=== PATIENT | female | born 2000 | race Caucasian/White ===

== ENCOUNTER 2018-11-13 02:33 | Emergency (ER) | payer BC ==
[2018-11-13] MEDS ORDERED: Sodium Chloride 0.9% 1,000 ML IV ONE (03:33)
[2018-11-13] MEDS ORDERED: Sodium Chloride 0.9% 10 ML Syringe FLUSH PRN (03:43)
--- NOTE | 2018-11-13 04:41 | EDM.PDOC ---
ED HPI GENERAL MEDICAL PROBLEM - General Chief Complaint: General Stated Complaint: leg weakness Time Seen by Provider: 11/13/18 02:45 Source of Information: Reports: Patient History Limitations: Reports: No Limitations - History of Present Illness INITIAL COMMENTS - FREE TEXT/NARRATIVE: patient is a previously healthy 18yo female who presents with inability to walk at home, feeling weak all over. earlier this afternoon she drove from [place] where she lives and works and states that while she was driving she started to feel weird, like her legs were kind of locked up and she notes that she didn't have cruise control in her car and felt like her foot was kind of stuck and she was unable to press down on the accelerator. She met up with her boyfriend about 11:50 PM them and they drove to his sister's house. As she got out of the car at his sister's house she tried walking to her own truck and just was not able to get there because her legs felt weak all over. She also noted that she was a little bit sweaty while sitting outside waiting for him to come help h but denies any other symptoms. She was unable to get up any stairs going into the house and her boyfriend had to help her significantly to come inside. He decided to call EMS as they were not sure what was wrong. She has never had anything like this happen before She notes a very slight amount of chest pain as she got on the ambulance, but says it felt more like anxiety at that point. She denies chest pain at any other time. She denies any nausea or vomiting, urinary tract symptoms such as dysuria, increased frequency or burning when she urinates. She denies any abnormal vaginal discharge, fevers, chills or sweats, palpitations, syncopal or dizziness. She states that her legs feel little bit tingly and weird all over but denies any other numbness. she has no other symptoms or medical problems aside from 2 surgeries on her right knee, the second one for patellar displacement. Right knee Pain Score (Numeric/FACES): 5 - Related Data Allergies Allergy/AdvReac Type Severity Reaction Status Date / Time No Known Allergies Allergy Verified 11/13/18 02:39 Home Meds: Home Meds Benzoyl Peroxide [Bpo] 1 each TP BID PRN 09/20/14 [History] Fluticasone Propionate [Flonase] 2 spray NS DAILY PRN 09/20/14 [History] Albuterol [Proventil] 1 - 2 puff PO ASDIRECTED PRN 05/28/16 [History] Citalopram [Citalopram HBr] 40 mg PO DAILY 11/13/18 [History] hydrOXYzine pamoate [Hydroxyzine Pamoate] 25 mg PO BEDTIME 11/13/18 [History] hydrOXYzine pamoate [Hydroxyzine Pamoate] 25 mg PO Q4H PRN 11/13/18 [History] Past Medical History Other HEENT History: ACNE Respiratory History: Reports: Asthma Other Respiratory History: SINUSITIS Musculoskeletal History: Reports: Fracture Other Musculoskeletal History: RIGHT WRIST 4 YEARS AGO Neurological History: Reports: Migraines Psychiatric History: Reports: Anxiety, Depression Endocrine/Metabolic History: Reports: Obesity/BMI 30+ Dermatologic History: Reports: Other (See Below) Other Dermatologic History: ACNE - Infectious Disease History Infectious Disease History: Reports: Chicken Pox - Past Surgical History Other HEENT Surgeries/Procedures: WISDOM TOOTH REMOVED Musculoskeletal Surgical History: Reports: Other (See Below) Other Musculoskeletal Surgeries/Procedures:: Scar tissue removal right knee. Social & Family History - Family History Cardiac: Reports: CAD, [place] (father at age 51 of massive [place]) Other Family History: no family history of sudden unexplained under the age of 50 that she is aware of. - Tobacco Use Smoking Status *Q: Current Every Day Smoker Years of Tobacco use: 2 Packs/Tins Daily: 0.5 - Caffeine Use Caffeine Use: Reports: Soda - Alcohol Use Alcohol Use Comment: denies any alcohol use - Recreational Drug Use Other Recreational Drug Route: denies any recreational drug use - Living Situation & Occupation Occupation: Employed Social History Comment: from [facility], living in [place] with her boyfriend. Father of massive [place] when she was [age] year of age, her mother was 21 at the time. she is estranged from her mother although does have some relationship with her maternal grandmother. she has siblings who are quite spaced from her and age, 3 older and 2 younger ED ROS GENERAL - Review of Systems Review Of Systems: ROS reveals no pertinent complaints other than HPI. ED EXAM, GENERAL - Physical Exam Exam: See Below Free Text/Narrative:: Gen.: Alert, pleasant in no acute distress. Tympanic membranes are clear bilaterally with normal light reflex and throat is without erythema, mucous members are moist and there is no tonsillar enlargement, uvula is midline. No cervical lymphadenopathy in her neck is supple and she is moving it freely. Lungs are clear throughout with no wheezes or crackles and good air movement in all kaur and heart is regular rate and rhythm. Abdomen positive bowel sounds, soft nondistended nontender with no rebound or guarding. peripheral pulses are + 2 bilaterally in both the upper and lower extremities and equal. She has no lower extremity edema. Neurologic exam: Patient is alert and oriented 3, cranial nerves II through XII are intact without deficit. Muscular strength is +5 out of 5 in the upper extremities. Lower extremity seems also to be +5 out of 5 with some break away weakness, but full strength issues suddenly resisted. Reflexes are 2+ in both the upper and lower extremities bilaterally and the Babinski sign is negative. Sensation is grossly intact and not officially tested. [id number] is intact , [id number] is also intact. Gait is observed to be normal after some normal saline when she is walking to the bathroom. Psych: smiling and glancing over at boyfriend as she answers questions. Good eye contact, speech normal rate and volume, thoughts logical and goal directed, no evident paranoia, hallucinations, or psychosis. Insight and judgment - unable to tell. No suicidal ideation and denies feeling in any danger. Course - Vital Signs Text/Narrative:: initial evaluation - normal neuro exam, patient with adequate strength when resisted with distraction. On control pills but discussed with her privately ruling out . Also will give liter normal saline as she hasn' t had much fluid intake today. Does not sound cardiac in nature, suspect primarily psychogenic. Last Recorded V/S: Last Vital Signs Temp 36.6 C 11/13/18 02:43 Pulse 90 11/13/18 02:43 Resp 20 11/13/18 02:43 BP 125/55 L 11/13/18 02:43 Pulse Ox 98 11/13/18 02:43 - Orders/Labs/Meds Orders: Active Orders 24 hr Category Date Time Status Sodium Chloride 0.9% [Saline Flush] Med 11/13/18 03:43 Active 10 ml FLUSH ASDIRECTED PRN Medication Orders Sodium Chloride (Saline Flush) 10 ml FLUSH ASDIRECTED PRN PRN Reason: IV Use Last Admin: 11/13/18 03:43 Dose: 10 ml Labs: Laboratory Tests 11/13/18 Range/Units 04:35 Urine HCG, Qual Negative (NEGATIVE) Meds: Medications Generic Name Dose Route Start Last Admin Trade Name Danilo PRN Reason Stop Dose Admin Sodium Chloride 10 ml 11/13/18 03:43 11/13/18 03:43 Saline Flush FLUSH 10 ml ASDIRECTED PRN Administration IV Use Discontinued Medications Generic Name Dose Route Start Last Admin Trade Name Freq PRN Reason Stop Dose Admin Sodium Chloride 1,000 mls @ 999 mls/hr 11/13/18 03:33 11/13/18 03:46 Normal Saline IV 11/13/18 04:33 999 mls/hr .BOLUS ONE Administration - Re-Assessments/Exams Free Text/Narrative Re-Assessment/Exam: 11/13/18 04:49 patient observed to be able to walk to bathroom without assistance. Free Text/Narrative Re-Assessment/Exam: 11/13/18 04:58 discussed with patient possibility of legs having some circulatory cutoff from sitting in car too long, wes while driving. She feels well enough now to go home. Encouraged fluids today, f/u with PCP if symptoms worsening. All questions answered and she is agreement with this plan. Departure - Departure Time of Disposition: 04:59 Disposition: Home, Self-Care 01 Condition: Good Clinical Impression: Weakness generalized - Discharge Information *PRESCRIPTION DRUG MONITORING PROGRAM REVIEWED*: Not Applicable *COPY OF PRESCRIPTION DRUG MONITORING REPORT IN PATIENT KING: Not Applicable Referrals: PCP,None [Primary Care Provider] - Forms: ED Department Discharge Additional Instructions: I suspect your symptoms are a combination of sitting in one position too long and slight dehydration. Sometimes stress can also be a contributing factor though we didn't really discuss that tonight. Recommendation: rest for the remainder of night suspect you will feel much better after some sleep abstain from alcohol/drugs as you are doing if achiness, be sure to drink lots of water, and can take ibuprofen or tylenol if needed when on longer car rides or driving, be sure to stop frequently to make sure legs have good circulation. It can also be helpful to adjust your seat slightly from time to time. Wes given your knee problems, this will be important to make sure you do not develop any swelling which can lead to clots. if symptoms persist, may want to see PCP for physical therapy referral. If worsening symptoms, re-evaluate early next week with PCP if concern for life-threat or after hours, may return to ER test negative - My Orders Last 24 Hours: My Active Orders 11/13/18 03:43 Sodium Chloride 0.9% [Saline Flush] 10 ml FLUSH ASDIRECTED PRN - Assessment/Plan Last 24 Hours: My Active Orders 11/13/18 03:43 Sodium Chloride 0.9% [Saline Flush] 10 ml FLUSH ASDIRECTED PRN
[2018-11-13 05:20] VITALS: BP 112/61; PULSE 76
== END 2018-11-13 05:15 | disposition home or self-care (01) ==
LOC: FB.ED 02:33
DX: R53.1 Weakness (principal); F41.9 Anxiety disorder, unspecified; F32.9 Major depressive disorder, single episode, unspecified; E66.9 Obesity, unspecified; F17.210 Nicotine dependence, cigarettes, uncomplicated; Z79.899 Other long term (current) drug therapy
CPT/HCPCS: 81025; 93005; 96360; 99284; J7030

== ENCOUNTER 2020-04-04 15:54 | Emergency (ER) | payer BC ==
[2020-04-04] MEDS ORDERED: Sodium Chloride 0.9% 10 ML Syringe FLUSH PRN (16:21)
[2020-04-04] MEDS ORDERED: Ketorolac 30 MG/ML SDV IVPUSH ONE (16:23)
[2020-04-04] MEDS ORDERED: Morphine 2 MG/ML SYRINGE IVPUSH ONE (16:24)
[2020-04-04] MEDS ORDERED: Sodium Chloride 0.9% 1,000 ML IV SCH (16:30)
[2020-04-04] MEDS ORDERED: Iopamidol 755 Mg/ML 100 ML Bottle IV ONE (16:57)
--- NOTE | 2020-04-04 18:31 | EDM.PDOC ---
ED HPI GENERAL MEDICAL PROBLEM - General Chief Complaint: Abdominal Pain Stated Complaint: RT ABD PAIN Time Seen by Provider: 04/04/20 16:00 Source of Information: Reports: Patient History Limitations: Reports: No Limitations - History of Present Illness INITIAL COMMENTS - FREE TEXT/NARRATIVE: Patient presented to the ED because of RUQ for the past 5 days. The pain is sharp,10/10, with associated nausea but no vomiting. There is no fever,chills, cough and cold. R upper abdomen Pain Score (Numeric/FACES): 9 - Related Data Allergies Allergy/AdvReac Type Severity Reaction Status Date / Time No Known Allergies Allergy Verified 04/04/20 16:03 Home Meds: Home Meds Albuterol [Proventil] 1 - 2 puff PO ASDIRECTED PRN 05/28/16 [History] Citalopram [Citalopram HBr] 40 mg PO DAILY 11/13/18 [History] hydrOXYzine pamoate [Hydroxyzine Pamoate] 25 mg PO BEDTIME 11/13/18 [History] hydrOXYzine pamoate [Hydroxyzine Pamoate] 25 mg PO Q4H PRN 11/13/18 [History] Ciprofloxacin HCl [Cipro] 500 mg PO BID 04/04/20 [History] Propranolol [Inderal] 80 mg PO BID 04/04/20 [History] SUMAtriptan succinate [Imitrex] 100 mg PO ASDIRECTED PRN 04/04/20 [History] Sulfamethoxazole/Trimethoprim [Bactrim Ds Tablet] 1 tab ASDIRECTED 04/04/20 [History] Past Medical History Other HEENT History: ACNE Respiratory History: Reports: Asthma Other Respiratory History: SINUSITIS Genitourinary History: Reports: Pyelonephritis Musculoskeletal History: Reports: Fracture Other Musculoskeletal History: RIGHT WRIST 4 YEARS AGO, R elbow, R ankle Neurological History: Reports: Migraines Psychiatric History: Reports: Anxiety, Depression Endocrine/Metabolic History: Reports: Obesity/BMI 30+ Dermatologic History: Reports: Other (See Below) Other Dermatologic History: ACNE - Infectious Disease History Infectious Disease History: Reports: Chicken Pox, MRSA - Past Surgical History HEENT Surgical History: Reports: Oral Surgery Other HEENT Surgeries/Procedures: WISDOM TOOTH REMOVED Musculoskeletal Surgical History: Reports: Arthroscopic Knee, Other (See Below) Other Musculoskeletal Surgeries/Procedures:: Scar tissue removal right knee x 2 Social & Family History - Family History Family Medical History: No Pertinent Family History Cardiac: Reports: CAD, [place] - Tobacco Use Tobacco Use Status *Q: Current Every Day Tobacco User Years of Tobacco use: 3 Packs/Tins Daily: 0.4 - Caffeine Use Caffeine Use: Reports: None - Alcohol Use Days Per Week of Alcohol Use: 1 Number of Drinks Per Day: 4 Total Drinks Per Week: 4 - Recreational Drug Use Recreational Drug Use: No - Living Situation & Occupation Occupation: Employed ED ROS GENERAL - Review of Systems Review Of Systems: See Below Constitutional: Reports: No Symptoms HEENT: Reports: No Symptoms Respiratory: Reports: No Symptoms Cardiovascular: Reports: No Symptoms Endocrine: Reports: No Symptoms GI/Abdominal: Reports: Abdominal Pain : Reports: No Symptoms Musculoskeletal: Reports: No Symptoms Skin: Reports: No Symptoms Neurological: Reports: No Symptoms Psychiatric: Reports: No Symptoms ED EXAM, GI/ABD - Physical Exam Exam: See Below Exam Limited By: No Limitations General Appearance: Alert, No Apparent Distress Ears: Normal External Exam Nose: Normal Inspection, Normal Mucosa Throat/Mouth: Normal Inspection, Normal Lips Head: Atraumatic, Normocephalic Respiratory/Chest: No Respiratory Distress Cardiovascular: Normal Peripheral Pulses GI/Abdominal Exam: Normal Bowel Sounds, Soft, No Organomegaly, Other (tenderness over the RUQ) Back Exam: Normal Inspection, Full Range of Motion Extremities: Normal Inspection, Normal Capillary Refill Course - Vital Signs Text/Narrative:: Labs/CT abd-pelvis was discussed with patient NS 1 L b bolus Zofran 4mg IV Toradol 30 mg IV x1 Morpgine 2 mg IV x1 Last Recorded V/S: Last Vital Signs Temp 36.7 C 04/04/20 15:58 Pulse 90 04/04/20 15:58 Resp 18 04/04/20 15:58 BP 136/81 04/04/20 15:58 Pulse Ox 100 04/04/20 15:58 - Orders/Labs/Meds Orders: Active Orders 24 hr Category Date Time Status Abdomen Pelvis w Cont [CT] Stat Exams 04/04/20 16:21 Ordered Sodium Chloride 0.9% [Normal Saline] 1,000 ml Med 04/04/20 16:30 Active IV ASDIRECTED Sodium Chloride 0.9% [Saline Flush] Med 04/04/20 16:21 Active 10 ml FLUSH ASDIRECTED PRN Saline Lock Insert [OM.PC] Routine Oth 04/04/20 16:21 Ordered Medication Orders Sodium Chloride (Normal Saline) 1,000 mls @ 999 mls/hr IV ASDIRECTED AUGIE Sodium Chloride (Saline Flush) 10 ml FLUSH ASDIRECTED PRN PRN Reason: Keep Vein Open Last Admin: 04/04/20 17:32 Dose: 10 ml Documented by: JACQUES Labs: Laboratory Tests 04/04/20 04/04/20 04/04/20 Range/Units 16:35 16:35 16:35 WBC 10.0 (3.0-10.3) x10-3/uL RBC 4.70 (3.60-5.20) x10(6)uL Hgb 14.2 (11.4-15.5) g/dL Hct 42.0 (34.2-48.2) % MCV 89.4 (76.7-100.5) fL MCH 30.1 (23.9-33.9) pg MCHC 33.7 (31.9-34.8) g/dL RDW 12.5 (12.3-16.5) % Plt Count 229 (151-488) x10(3)uL MPV 8.4 (7.1-12.4) fL Neut % (Auto) 65.0 (30.8-76.2) % Lymph % (Auto) 26.5 (18.4-52.1) % [place] % (Auto) 6.4 (4.4-15.7) % Eos % (Auto) 1.8 (0.6-8.1) % Baso % (Auto) 0.3 (0.2-1.5) % Neut # (Auto) 6.5 H (1.5-6.3) x10-3/uL Lymph # (Auto) 2.6 (1.0-4.4) x10-3/uL [place] # (Auto) 0.6 (0.3-1.0) x10-3/uL Eos # (Auto) 0.2 (0.0-0.8) x10-3/uL Baso # (Auto) 0.0 (0.0-0.1) x10-3/uL Sodium 138 (135-145) mmol/L Potassium 4.2 (3.5-5.3) mmol/L Chloride 101 (100-110) mmol/L Carbon Dioxide 28 (21-32) mmol/L BUN 17 (7-18) mg/dL Creatinine 0.8 (0.55-1.02) mg/dL Est Cr Clr Drug Dosing 95.25 mL/min Estimated GFR (MDRD) > 60 (>60) BUN/Creatinine Ratio 21.3 H (9-20) Glucose 94 (80-116) mg/dL Calcium 9.7 (8.6-10.2) mg/dL Total Bilirubin 0.4 (0.1-1.3) mg/dL AST 18 (5-25) IU/L ALT 36 (12-36) U/L Alkaline Phosphatase 46 L (56-112) IU/L Total Protein 8.2 H (6.0-8.0) g/dL Albumin 4.1 (3.5-5.2) g/dL Globulin 4.1 g/dL Albumin/Globulin Ratio 1.0 Amylase 40 (25-115) U/L Lipase 181 (73-393) U/L Urine Color (YELLOW) Urine Appearance (CLEAR) Urine pH (5.0-6.5) Ur Specific [place] (1.010-1.025) Urine Protein (NEGATIVE) mg/dL Urine Glucose (UA) (NORMAL) mg/dL Urine Ketones (NEGATIVE) mg/dL Urine Occult Blood (NEGATIVE) Urine Nitrite (NEGATIVE) Urine Bilirubin (NEGATIVE) Urine Urobilinogen (NEGATIVE) mg/dL Ur Leukocyte Esterase (NEGATIVE) Urine RBC (0-5) Urine WBC (0-5) Ur Squamous Epith Cells (NS,R,O) Urine Bacteria (NS) 04/04/20 Range/Units 17:05 WBC (3.0-10.3) x10-3/uL RBC (3.60-5.20) x10(6)uL Hgb (11.4-15.5) g/dL Hct (34.2-48.2) % MCV (76.7-100.5) fL MCH (23.9-33.9) pg MCHC (31.9-34.8) g/dL RDW (12.3-16.5) % Plt Count (151-488) x10(3)uL MPV (7.1-12.4) fL Neut % (Auto) (30.8-76.2) % Lymph % (Auto) (18.4-52.1) % [place] % (Auto) (4.4-15.7) % Eos % (Auto) (0.6-8.1) % Baso % (Auto) (0.2-1.5) % Neut # (Auto) (1.5-6.3) x10-3/uL Lymph # (Auto) (1.0-4.4) x10-3/uL [place] # (Auto) (0.3-1.0) x10-3/uL Eos # (Auto) (0.0-0.8) x10-3/uL Baso # (Auto) (0.0-0.1) x10-3/uL Sodium (135-145) mmol/L Potassium (3.5-5.3) mmol/L Chloride (100-110) mmol/L Carbon Dioxide (21-32) mmol/L BUN (7-18) mg/dL Creatinine (0.55-1.02) mg/dL Est Cr Clr Drug Dosing mL/min Estimated GFR (MDRD) (>60) BUN/Creatinine Ratio (9-20) Glucose (80-116) mg/dL Calcium (8.6-10.2) mg/dL Total Bilirubin (0.1-1.3) mg/dL AST (5-25) IU/L ALT (12-36) U/L Alkaline Phosphatase (56-112) IU/L Total Protein (6.0-8.0) g/dL Albumin (3.5-5.2) g/dL Globulin g/dL Albumin/Globulin Ratio Amylase (25-115) U/L Lipase (73-393) U/L Urine Color Yellow (YELLOW) Urine Appearance Clear (CLEAR) Urine pH 7.0 H (5.0-6.5) Ur Specific [place] 1.010 (1.010-1.025) Urine Protein Negative (NEGATIVE) mg/dL Urine Glucose (UA) Normal (NORMAL) mg/dL Urine Ketones Negative (NEGATIVE) mg/dL Urine Occult Blood Moderate H (NEGATIVE) Urine Nitrite Negative (NEGATIVE) Urine Bilirubin Negative (NEGATIVE) Urine Urobilinogen Normal (NEGATIVE) mg/dL Ur Leukocyte Esterase Negative (NEGATIVE) Urine RBC 0-5 (0-5) Urine WBC 0-5 (0-5) Ur Squamous Epith Cells Occasional (NS,R,O) Urine Bacteria Rare H (NS) Meds: Medications Generic Name Dose Route Start Last Admin Trade Name Danilo PRN Reason Stop Dose Admin Sodium Chloride 1,000 mls @ 999 mls/hr 04/04/20 16:30 Normal Saline IV ASDIRECTED AUGIE Sodium Chloride 10 ml 04/04/20 16:21 04/04/20 17:32 Saline Flush FLUSH 10 ml ASDIRECTED PRN Administration Keep Vein Open Discontinued Medications Generic Name Dose Route Start Last Admin Trade Name Danilo PRN Reason Stop Dose Admin Iopamidol 100 ml 04/04/20 16:57 04/04/20 17:43 Isovue-370 (76%) IV 04/04/20 16:58 100 ml . DIRECTED ONE Administration Ketorolac Tromethamine 30 mg 04/04/20 16:23 04/04/20 17:32 Toradol IVPUSH 04/04/20 16:24 30 mg ONETIME ONE Administration Morphine Sulfate 2 mg 04/04/20 16:24 04/04/20 17:35 Morphine IVPUSH 04/04/20 16:25 2 mg ONETIME ONE Administration Departure - Departure Time of Disposition: 18:35 Disposition: Home, Self-Care 01 Condition: Good Clinical Impression: Biliary colic - Discharge Information Instructions: Biliary Colic, Adult Referrals: Ira Calzada, [employer] [Primary Care Provider] - Forms: ED Department Discharge Additional Instructions: Please read discharge instructions on biliary colic Avoid greasy foods Take ibuprofen 800 mg with tylenol 1000 mg every 8 hours as needed for pain Follow up as needed Sepsis Event Note (ED) - Evaluation Sepsis Screening Result: No Definite Risk - Focused Exam Vital Signs: Vital Signs Temp Pulse Resp BP Pulse Ox 04/04/20 15:58 36.7 C 90 18 136/81 100 - My Orders Last 24 Hours: My Active Orders 04/04/20 16:21 Abdomen Pelvis w Cont [CT] Stat Sodium Chloride 0.9% [Saline Flush] 10 ml FLUSH ASDIRECTED PRN Saline Lock Insert [OM.PC] Routine 04/04/20 16:30 Sodium Chloride 0.9% [Normal Saline] 1,000 ml IV ASDIRECTED - Assessment/Plan Last 24 Hours: My Active Orders 04/04/20 16:21 Abdomen Pelvis w Cont [CT] Stat Sodium Chloride 0.9% [Saline Flush] 10 ml FLUSH ASDIRECTED PRN Saline Lock Insert [OM.PC] Routine 04/04/20 16:30 Sodium Chloride 0.9% [Normal Saline] 1,000 ml IV ASDIRECTED
[2020-04-04 21:17] VITALS: BP 113/65; PULSE 54
== END 2020-04-04 18:36 | disposition home or self-care (01) ==
LOC: FB.ED 15:54
DX: K80.50 Calculus of bile duct without cholangitis or cholecystitis without obstruction (principal); J45.909 Unspecified asthma, uncomplicated; F41.9 Anxiety disorder, unspecified; F32.9 Major depressive disorder, single episode, unspecified; E66.9 Obesity, unspecified; Z68.34 Body mass index [BMI] 34.0-34.9, adult; F17.210 Nicotine dependence, cigarettes, uncomplicated; Z79.899 Other long term (current) drug therapy
CPT/HCPCS: 36415; 74177; 80053; 81001; 82150; 83690; 85025; 96374; 96375; 99284-25; J1885; J2270; Q9967

== ENCOUNTER 2020-05-04 17:39 | Emergency (ER) | payer BC ==
[2020-05-04 17:50] VITALS: BP 121/73; PULSE 94
--- NOTE | 2020-05-04 18:06 | EDM.PDOC ---
ED HPI GENERAL MEDICAL PROBLEM - General Chief Complaint: Headache Stated Complaint: MIGRAINE Time Seen by Provider: 05/04/20 18:04 Source of Information: Reports: Patient History Limitations: Reports: No Limitations - History of Present Illness INITIAL COMMENTS - FREE TEXT/NARRATIVE: iN complains of headache,started at 0930 this morning. Consistent with her migraine attacks. Last month had the same type of headache treated here. pain is severe,associated with vomiting,and photosensitivity. no fever or visual disturbance.She took Imitrex with no relief headache Pain Score (Numeric/FACES): 6 - Related Data Allergies Allergy/AdvReac Type Severity Reaction Status Date / Time No Known Allergies Allergy Verified 05/04/20 17:48 Home Meds: Home Meds Albuterol [Proventil] 1 - 2 puff PO ASDIRECTED PRN 05/28/16 [History] Citalopram [Citalopram HBr] 40 mg PO DAILY 11/13/18 [History] hydrOXYzine pamoate [Hydroxyzine Pamoate] 25 mg PO BEDTIME 11/13/18 [History] hydrOXYzine pamoate [Hydroxyzine Pamoate] 25 mg PO Q4H PRN 11/13/18 [History] Ciprofloxacin HCl [Cipro] 500 mg PO BID 04/04/20 [History] Propranolol [Inderal] 80 mg PO BID 04/04/20 [History] SUMAtriptan succinate [Imitrex] 100 mg PO ASDIRECTED PRN 04/04/20 [History] Sulfamethoxazole/Trimethoprim [Bactrim Ds Tablet] 1 tab ASDIRECTED 04/04/20 [History] Past Medical History Other HEENT History: ACNE Respiratory History: Reports: Asthma Other Respiratory History: SINUSITIS Genitourinary History: Reports: Pyelonephritis Musculoskeletal History: Reports: Fracture Other Musculoskeletal History: RIGHT WRIST 4 YEARS AGO, R elbow, R ankle Neurological History: Reports: Migraines Psychiatric History: Reports: Anxiety, Depression Endocrine/Metabolic History: Reports: Obesity/BMI 30+ Dermatologic History: Reports: Other (See Below) Other Dermatologic History: ACNE - Infectious Disease History Infectious Disease History: Reports: Chicken Pox, MRSA - Past Surgical History HEENT Surgical History: Reports: Oral Surgery Other HEENT Surgeries/Procedures: WISDOM TOOTH REMOVED Musculoskeletal Surgical History: Reports: Arthroscopic Knee, Other (See Below) Other Musculoskeletal Surgeries/Procedures:: Scar tissue removal right knee x 2 Social & Family History - Family History Family Medical History: No Pertinent Family History Cardiac: Reports: CAD, [place] - Caffeine Use Caffeine Use: Reports: None - Living Situation & Occupation Occupation: Employed ED ROS GENERAL - Review of Systems Review Of Systems: Comprehensive ROS is negative, except as noted in HPI. - Physical Exam Exam: See Below Exam Limited By: No Limitations General Appearance: Alert, WD/WN, No Apparent Distress Respiratory/Chest: No Respiratory Distress Neuro Exam (Abbreviated): Alert, Oriented Course - Vital Signs Last Recorded V/S: Last Vital Signs Temp 98.1 F 05/04/20 17:45 Pulse 94 05/04/20 17:45 Resp 17 05/04/20 17:45 BP 121/73 05/04/20 17:45 Pulse Ox 100 05/04/20 17:45 - Orders/Labs/Meds Labs: Laboratory Tests 05/04/20 Range/Units 19:30 SARS-CoV-2 ORF1ab Gene Negative (Negative) Meds: Medications Discontinued Medications Generic Name Dose Route Start Last Admin Trade Name Danilo PRN Reason Stop Dose Admin Hydroxyzine HCl 50 mg 05/04/20 18:03 05/04/20 18:12 Vistaril IM 05/04/20 18:04 50 mg ONETIME ONE Administration Meperidine HCl 100 mg 05/04/20 18:03 05/04/20 18:11 Demerol IM 05/04/20 18:04 100 mg ONETIME ONE Administration Departure - Departure Time of Disposition: 11:08 Disposition: Home, Self-Care 01 Condition: Good Clinical Impression: Migraine, Biliary colic - Discharge Information Instructions: COVID-19 Frequently Asked Questions, Nausea and Vomiting, Adult, [id number], Migraine Headache Referrals: PCP,None [Primary Care Provider] - Forms: ED Department Discharge Additional Instructions: Take your Zofran as directed by your PCP. Follow up with your PCP as needed. Drink plenty of water once nausea and vomiting is better. Call if you have any questions or come back to the ER if symptoms get acutely worse. Sepsis Event Note (ED) - Evaluation Sepsis Screening Result: No Definite Risk - Problem List & Annotations (1) Migraine SNOMED Code(s): 92207397 Code(s): G43.909 - MIGRAINE, UNSP, NOT INTRACTABLE, WITHOUT STATUS MIGRAINOSUS Status: Acute - Problem List Review Problem List Initiated/Reviewed/Updated: Yes - Assessment/Plan Plan: Will get testing and follow up with incoming physician
[2020-05-04] MEDS: Meperidine PF 100 MG/ML Syringe IM ONE (18:11)
[2020-05-04] MEDS: hydrOXYzine HCl 50 MG/ML SDV IM ONE (18:12)
[2020-05-07 17:03] LABS: CORNONAVIRUS (COVID19) CSH-NRL Negative (Negative)
== END 2020-05-04 19:35 | disposition home or self-care (01) ==
LOC: FB.ED 17:39
DX: G43.909 Migraine, unspecified, not intractable, without status migrainosus (principal); K80.50 Calculus of bile duct without cholangitis or cholecystitis without obstruction; J45.909 Unspecified asthma, uncomplicated; E66.9 Obesity, unspecified; Z68.34 Body mass index [BMI] 34.0-34.9, adult; Z20.822 Contact with and (suspected) exposure to COVID-19; Z79.899 Other long term (current) drug therapy
CPT/HCPCS: 87635; 96372; 99283; J2175; J3410; U0003

== ENCOUNTER 2021-03-28 23:40 | Emergency (ER) | payer BC ==
[2021-03-28] MEDS ORDERED: Acetaminophen/HYDROcodone 325-5 MG Tab PO ONE (23:41)
[2021-03-28] MEDS ORDERED: Lidocaine 2% 20 ML MDV INFILT ONE (23:41)
[2021-03-28 23:51] VITALS: BP 119/75; PULSE 90
--- NOTE | 2021-03-29 00:19 | EDM.PDOC ---
ED HPI GENERAL MEDICAL PROBLEM - General Chief Complaint: General Stated Complaint: CYST Time Seen by Provider: 03/29/21 00:10 Source of Information: Reports: Patient History Limitations: Reports: No Limitations - History of Present Illness INITIAL COMMENTS - FREE TEXT/NARRATIVE: 21-year-old female who reports 3 days ago she began to have redness, pain and swelling in her right groin. This area has gotten progressively larger and more painful over time. It is currently about the size of a golf ball diameter. She reports the pain is a 7/10 now but goes up to a 9/10 with movement and palpation. It is sharp, aching and throbbing. She has had no fevers or chills. She has had no nausea or vomiting. She has been eating and drinking normally. She tells me that she has had areas like this before and most of the time they rupture on their own and then seemed to resolve your simply go away with warm compresses and time. This area tonight has not responded to those measures and has progressed over time. She states she has had to have possibly two of these incised and drained over her lifetime. She has had no dysuria or hematuria. No vaginal discharge. Abdominal pain. There are no other associated signs or symptoms. There are no other modifying factors. 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 (see below) (Nothing.) Right Groin Pain Score (Numeric/FACES): 8 - Related Data Allergies Allergy/AdvReac Type Severity Reaction Status Date / Time No Known Allergies Allergy Verified 05/04/20 17:48 Home Meds: Home Meds Citalopram [Citalopram HBr] 40 mg PO DAILY 11/13/18 [History] SUMAtriptan succinate [Imitrex] 100 mg PO ASDIRECTED PRN 04/04/20 [History] Ketorolac [Toradol] 30 mg .XX ASDIRECTED PRN 03/28/21 [History] Doxycycline Hyclate 100 mg PO BID 7 Days #14 tablet 03/29/21 [Rx] Past Medical History Other HEENT History: ACNE Respiratory History: Reports: Asthma Other Respiratory History: SINUSITIS Genitourinary History: Reports: Pyelonephritis Musculoskeletal History: Reports: Fracture Other Musculoskeletal History: RIGHT WRIST 4 YEARS AGO, R elbow, R ankle Neurological History: Reports: Migraines Psychiatric History: Reports: Anxiety, Depression Endocrine/Metabolic History: Reports: Obesity/BMI 30+ Dermatologic History: Reports: Other (See Below) Other Dermatologic History: ACNE - Infectious Disease History Infectious Disease History: Reports: Chicken Pox, MRSA - Past Surgical History HEENT Surgical History: Reports: Oral Surgery Other HEENT Surgeries/Procedures: WISDOM TOOTH REMOVED Musculoskeletal Surgical History: Reports: Arthroscopic Knee, Other (See Below) Other Musculoskeletal Surgeries/Procedures:: Scar tissue removal right knee x 2 Social & Family History - Family History Cardiac: Reports: CAD, CA - Tobacco Use Tobacco Use Status *Q: Current Every Day Tobacco User - Caffeine Use Caffeine Use: Reports: Soda - Alcohol Use Alcohol Use History: Yes Alcohol Use Frequency: Socially - Living Situation & Occupation Occupation: Employed ED ROS GENERAL - Review of Systems Review Of Systems: See Below Constitutional: Denies: Fever, Chills HEENT: Denies: Throat Pain, Throat Swelling Respiratory: Denies: Shortness of Breath, Pleuritic Chest Pain, Cough Cardiovascular: Denies: Chest Pain, Palpitations Endocrine: Denies: High Glucose GI/Abdominal: Denies: Abdominal Pain, Nausea, Vomiting : Denies: Dysuria Musculoskeletal: Reports: Leg Pain (Right groin pain and fluctuant area.). Denies: Back Pain Skin: Reports: Change in Color, Lumps Neurological: Denies: Dizziness, Headache Hematologic/Lymphatic: Denies: Easy Bleeding, Easy Bruising ED EXAM, GENERAL - Physical Exam Exam: See Below Exam Limited By: No Limitations General Appearance: Alert, WD/WN Eye Exam: Bilateral Eye: EOMI, Normal Inspection (Sclera are anicteric) Ears: Normal External Exam, Hearing Grossly Normal Ear Exam: Bilateral Ear: Auricle Normal Nose: Normal Inspection, Normal Mucosa, No Blood Throat/Mouth: Normal Oropharynx, Normal Voice, No Airway Compromise Head: Atraumatic, Normocephalic Neck: Normal Inspection, Supple, Non-Tender, Full Range of Motion Respiratory/Chest: No Respiratory Distress, Lungs Clear, Normal Breath Sounds, No Accessory Muscle Use, Chest Non-Tender Cardiovascular: Normal Peripheral Pulses, Regular Rate, Rhythm, No Murmur Peripheral Pulses: 2+: Radial (L), Radial (R) GI/Abdominal: Normal Bowel Sounds, Soft, Non-Tender Back Exam: Normal Inspection Extremities: Normal Inspection, Normal Range of Motion, Non-Tender, No Pedal Edema, Normal Capillary Refill Neurological: Alert, Oriented, CN II-XII Intact, Normal Cognition, No Mo tor/Sensory Deficits Psychiatric: Normal Affect, Tearful Skin Exam: Dry, Erythema, Increased Warmth, Other (And fluctuant area in the right groin.) ED GENERAL MEDICAL PROCEDURES - Additional/Other Procedure(s) Other (Free Text) Procedure(s): After informed verbal consent was obtained from the patient, the area around the right groin subcutaneous abscess was infiltrated with 2% lidocaine 10 at milliliters. There was good anesthesia no complications. The area was then prepped with Betadine and an 11 blade scalpel was used to incise the skin over this abscess along the lines of Jaimie and pus was expressed. A curved hemostat was used to break up the loculations and the abscess cavity was copiously irrigated with Betadine tinged or water. The wound was then packed with one-inch iodoform gauze and an appropriate supportive dressing was applied by the nursing staff. The patient was treated with doxycycline with 200 milligrams orally. Course - Vital Signs Last Recorded V/S: Last Vital Signs Temp 36.5 C 03/28/21 23:50 Pulse 90 03/28/21 23:50 Resp 16 03/28/21 23:50 BP 119/75 03/28/21 23:50 Pulse Ox 98 03/28/21 23:50 - Orders/Labs/Meds Meds: Medications Discontinued Medications Generic Name Dose Route Start Last Admin Trade Name Freq PRN Reason Stop Dose Admin Doxycycline Hyclate 200 mg 03/29/21 00:53 03/29/21 00:59 Doxycycline 100 Mg Tab PO 03/29/21 00:54 200 mg ONETIME ONE Administration - Re-Assessments/Exams Free Text/Narrative Re-Assessment/Exam: 03/29/21 00:50: Patient with subcutaneous skin abscess in right groin area that was I&D. The patient tolerated this well and there are no apparent complications. I will the patient on doxycycline 100 mg twice daily for 7 days. I gave her 200 mg orally tonight. She is also given a take home pack of hydrocodone 5/325. She can take ibuprofen for her pain is well. She is to leave the packing in place until Thursday morning and she should remove it while she is in the shower and washed the area with soap and water to clean it thoroughly. She should do this twice daily thereafter. Precautions and reasons to return to the emergency department were discussed with the patient while she was in the emergency department and were detailed in the patient's discharge instructions. Departure - Departure Time of Disposition: 01:05 Disposition: Home, Self-Care 01 Condition: Good Clinical Impression: Cellulitis and abscess of other specified site Subcutaneous abscess Qualifiers: Site of cutaneous abscess: trunk Site of cutaneous abscess of trunk: groin Qualified Code(s): L02.214 - Cutaneous abscess of groin - Discharge Information Prescriptions: Doxycycline Hyclate 100 mg PO BID 7 Days #14 tablet Instructions: Skin Abscess, [id number], Cellulitis, Adult, [id number] Referrals: Ira Calzada, MANAGER OF REGULATORY AFFAIRS [Primary Care Provider] - Forms: ED Department Discharge Additional Instructions: You have an abscess of your right groin. It was incised and drained in the emergency department and packing was placed in the abscess cavity. Leave this intact until Thursday morning, 03/30/2021, and then you should remove the packi ng and wash the area thoroughly while in the shower. Following this you should apply a was dressing over it until it has healed over. He Profen 800 mg by mouth every 8 hours as needed for pain. Haitians as prescribed for the infection (doxycycline 100 mg)--the prescription for this medication was electronically sent to [facility]. I did give you a take home pack of hydrocodone 5/325 that you can use as needed for moderate to severe pain. Back to the emergency department for marked increase in pain, spreading redness, high fever, unrelenting vomiting or any other concerning signs or symptoms. Sepsis Event Note (ED) - Evaluation Sepsis Screening Result: No Definite Risk - Focused Exam Vital Signs: Vital Signs Temp Pulse Resp BP Pulse Ox 03/28/21 23:50 36.5 C 90 16 119/75 98
[2021-03-29] MEDS ORDERED: Doxycycline 100 MG Tab PO ONE (00:53)
== END 2021-03-29 01:10 | disposition home or self-care (01) ==
LOC: FB.ED 23:40
DX: L03.314 Cellulitis of groin (principal); L02.214 Cutaneous abscess of groin; E66.9 Obesity, unspecified; Z72.0 Tobacco use; Z68.36 Body mass index [BMI] 36.0-36.9, adult
CPT/HCPCS: 10060; 99283-25; A9270-GY

== ENCOUNTER 2022-02-08 20:57 | Emergency (ER) | payer BC, OTHER ==
[2022-02-08] MEDS ORDERED: Morphine 10 MG/ML SDV IM ONE (21:13)
[2022-02-08] MEDS ORDERED: hydrOXYzine HCl 50 MG/ML SDV IM ONE (21:13)
[2022-02-09 00:17] VITALS: BP 143/87; PULSE 99
== END 2022-02-08 22:08 | disposition home or self-care (01) ==
LOC: FB.ED 20:57
DX: M54.40 Lumbago with sciatica, unspecified side (principal); E66.9 Obesity, unspecified; Z68.37 Body mass index [BMI] 37.0-37.9, adult
CPT/HCPCS: 96372; 99283; J2270; J3410

== ENCOUNTER 2023-01-18 19:14 | Emergency (ER) | payer BC ==
[2023-01-18 20:09] VITALS: BP 125/84; PULSE 89
== END 2023-01-18 20:32 | disposition home or self-care (01) ==
LOC: FB.ED 19:14
DX: J04.0 Acute laryngitis (principal); E66.9 Obesity, unspecified; Z68.37 Body mass index [BMI] 37.0-37.9, adult; Z91.018 Allergy to other foods; Z79.899 Other long term (current) drug therapy
CPT/HCPCS: 87651-QW; 99283

== ENCOUNTER 2025-02-20 21:17 | Emergency (ER) | payer BC, OTHER ==
[2025-02-20] MEDS: Ondansetron 4 MG Tab.DIS PO ONE (22:16)
[2025-02-21 00:06] VITALS: BP 115/74; PULSE 65
== END 2025-02-21 00:05 | disposition home or self-care (01) ==
LOC: FB.ED 21:17
DX: M62.838 Other muscle spasm (principal); R51.9 Headache, unspecified; J45.909 Unspecified asthma, uncomplicated; Z88.8 Allergy status to other drugs, medicaments and biological substances; Z79.899 Other long term (current) drug therapy
CPT/HCPCS: 70450; 72125; 99284; A9270; Q0162